=== PATIENT | male | born 1965 | race Caucasian/White ===

== ENCOUNTER 2019-12-14 09:10 | Emergency (ER) | payer SELFPAY ==
[~2019-12-14] VITALS: Ht 167.6 cm; Wt 68.1 kg
--- NOTE | 2019-12-14 09:55 | PHYS DOC ---
Past Medical History Past Medical History: Diverticulitis Past Surgical History: Other Additional Past Surgical Histo: plastic surgery to face Smoking Status: Never Smoker Alcohol Use: Occasionally General Adult EDM: Chief Complaint: KNEE INJURY HPI: HPI: Patient is a 54 year old male who presented to ER today for evaluation of left knee pain. Patient said he was a vacuum yesterday and accidentally twisted his left knee, has pain in his left knee with movement or walking since. Patient denies any history of knee problem in the past. Review of Systems: Review of Systems: Constitutional: Denies fever or chills. [] Eyes: Denies change in visual acuity. [] HENT: Denies nasal congestion or sore throat. [] Respiratory: Denies cough or shortness of breath. [] Cardiovascular: Denies chest pain or edema. [] GI: Denies abdominal pain, nausea, vomiting, bloody stools or diarrhea. [] : Denies dysuria. [] Musculoskeletal: Positive for left knee pain. Integument: Denies rash. [] Neurologic: Denies headache, focal weakness or sensory changes. [] Endocrine: Denies polyuria or polydipsia. [] Lymphatic: Denies swollen glands. [] Psychiatric: Denies depression or anxiety. [] Heart Score: Risk Factors: Risk Factors: DM, Current or recent (<one month) smoker, HTN, HLP, family history of CAD, obesity. Risk Scores: Score 0 - 3: 2.5% MACE over next 6 weeks - Discharge Home Score 4 - 6: 20.3% MACE over next 6 weeks - Admit for Clinical Observation Score 7 - 10: 72.7% MACE over next 6 weeks - Early Invasive Strategies Allergies: Allergies: Allergies Coded Allergies Type Severity Reaction Last Updated Verified No Known Drug Allergies 12/14/19 No Physical Exam: PE: Constitutional: Well developed, well nourished, no acute distress, non-toxic appearance. [] HENT: Normocephalic, atraumatic, bilateral external ears normal, oropharynx moist, no oral exudates, nose normal. [] Eyes: PERRLA, EOMI, conjunctiva normal, no discharge. [] Neck: Normal range of motion, no tenderness, supple, no stridor. [] Cardiovascular:Heart rate regular rhythm, no murmur [] Lungs & Thorax: Bilateral breath sounds clear to auscultation [] Abdomen: Bowel sounds normal, soft, no tenderness, no masses, no pulsatile masses. [] Skin: Warm, dry, no erythema, no rash. [] Back: No tenderness, no CVA tenderness. [] Extremities: Left knee is tender to palpation at the medial collateral ligament area, left knee joint is Stable. There is minimal swelling. Neurologic: Alert and oriented X 3, normal motor function, normal sensory function, no focal deficits noted. [] Psychologic: Affect normal, judgement normal, mood normal. [] Current Patient Data: Vital Signs: Vital Signs Date Time Temp Pulse Resp B/P (MAP) Pulse Ox O2 Delivery O2 Flow Rate FiO2 12/14/19 09:20 98.3 55 18 146/84 (104) 99 Room Air 98.3 EKG: EKG: [] Radiology/Procedures: Radiology/Procedures: [facility] [address] [place] [address] IMAGING REPORT Signed PATIENT: KAJAL OLGUIN ACCOUNT: [id number] : 1965 LOCATION: ER AGE: 54 SEX: M EXAM STATUS: PRE ER ORD. PHYSICIAN: ASHLEIGH JOHN DO REASON: TWISTED LEFT KNEE YESTERDAY, HAVING PAIN WITH WALKING PROCEDURE: KNEE LEFT 3V EXAM: Left knee, 3 views. HISTORY: Twisting injury. COMPARISON: None. FINDINGS: 3 views of the left knee are obtained. There is no fracture, dislocation or subluxation. There is a moderate joint effusion. IMPRESSION: Moderate joint effusion. No acute osseous finding. Electronically signed by: Tootie Bardales MD (12/14/2019 10:18 AM) [id number] DICTATED and SIGNED BY: TOOTIE BARDALES MD DATE: 12/14/19 1018 Course & Med Decision Making: Course & Med Decision Making Pertinent Labs and Imaging studies reviewed. (See chart for details) Patient is a 56-year-old male who was evaluated in the ER due to left knee injury, patient is suspected sprain of knee ligament, patient was placed on a knee immobilizer. Patient will be discharged home, he was given the phone number of the orthopedic doctor here for outpatient follow-up with MRI and further evaluation. Erin Disclaimer: Erin Disclaimer: This electronic medical record was generated, in whole or in part, using a voice recognition dictation system. Departure Departure Impression: Primary Impression: Left knee sprain Disposition: HOME, SELF-CARE Condition: STABLE Referrals: TERENCE LOPEZ II, MD please call this orthopedic surgeon for follow up for further evaluation. Patient Instructions: Knee Sprain Scripts Naproxen Sodium (ANAPROX DS) 550 Mg Tablet 1 TAB PO BID PRN for PAIN for 15 Days, #30 TAB 0 Refills Prov: ASHLEIGH JOHN DO 12/14/19 Justicifation of Admission Dx: Justifications for Admission: Justification of Admission Dx: N/A ASHLEIGH JOHN DO Dec 14, 2019 09:55
--- NOTE | 2019-12-14 10:21 | RAD ---
EXAM: Left knee, 3 views. HISTORY: Twisting injury. COMPARISON: None. FINDINGS: 3 views of the left knee are obtained. There is no fracture, dislocation or subluxation. There is a moderate joint effusion. IMPRESSION: Moderate joint effusion. No acute osseous finding. Electronically signed by: Tootie Rogers MD (12/14/2019 10:18 AM) [id number]
[2019-12-14 10:54] VITALS: BP 149/71
[2019-12-14] MEDS ORDERED: NAPR-682 PO (10:57)
== END 2019-12-14 11:08 | disposition home or self-care (01) ==
LOC: ER 09:10
DX: S83.92XA Sprain of unspecified site of left knee, initial encounter (principal); X50.3XXA Overexertion from repetitive movements, initial encounter; X50.9XXA Other and unspecified overexertion or strenuous movements or postures, initial encounter; Y93.01 Activity, walking, marching and hiking; Y92.89 Other specified places as the place of occurrence of the external cause; Y99.8 Other external cause status
CPT/HCPCS: 29505; 73562; 99283

== ENCOUNTER 2020-04-23 09:41 | Emergency (ER) | payer BC ==
[~2020-04-23] VITALS: Ht 167.6 cm; Wt 65.9 kg
[~2020-04-23 09:41] MED LIST: NAPR-682 PO
[2020-04-23] MEDS ORDERED: ONDANSETRON PF 4 MG/2 ML VIAL. ONE (09:44)
[2020-04-23] MEDS ORDERED: ONDANSETRON PF 4 MG/2 ML VIAL. IVP ONE (09:45)
--- NOTE | 2020-04-23 09:59 | PHYS DOC ---
Past Medical History Past Medical History: Diverticulitis Past Surgical History: Other Additional Past Surgical Histo: plastic surgery to face Smoking Status: Never Smoker Alcohol Use: Occasionally General Adult HPI: HPI: Patient is a 54 year old male currently on Cipro and Flagyl for active diverticulitis who presents today from ENT office to be evaluated for syncope and possible seizure. Patient states he was having a biopsy of the right nose for a polyp. He states he was informed he passed out and could've had a seizure. Patient denies any symptoms right now apart from nausea. Review of Systems: Review of Systems: Constitutional: Denies fever or chills. [] Eyes: Denies change in visual acuity. [] HENT: Denies nasal congestion or sore throat. [] Respiratory: Denies cough or shortness of breath. [] Cardiovascular: Denies chest pain or edema. [] GI: Denies abdominal pain, nausea, vomiting, bloody stools or diarrhea. [] : Denies dysuria. [] Musculoskeletal: Denies back pain or joint pain. [] Integument: Denies rash. [] Neurologic: Reports possible syncope and possible seizure. Denies headache, focal weakness or sensory changes. [] Psychiatric: Denies depression or anxiety. [] Heart Score: Risk Factors: Risk Factors: DM, Current or recent (<one month) smoker, HTN, HLP, family histo ry of CAD, obesity. Risk Scores: Score 0 - 3: 2.5% MACE over next 6 weeks - Discharge Home Score 4 - 6: 20.3% MACE over next 6 weeks - Admit for Clinical Observation Score 7 - 10: 72.7% MACE over next 6 weeks - Early Invasive Strategies Current Medications: Current Medications Medications (Trade) Dose Ordered Sig/[facility] Start Time Stop Time Status Last Admin Dose Admin Ondansetron HCl (Zofran) 4 mg 1X ONCE 04/23/20 09:45 04/23/20 09:48 DC Allergies: Allergies: Allergies Coded Allergies Type Severity Reaction Last Updated Verified No Known Drug Allergies 12/14/19 No Physical Exam: PE: Constitutional: Well developed, well nourished, no acute distress, non-toxic appearance. [] HENT: Normocephalic, atraumatic, bilateral external ears normal, oropharynx moist, no oral exudates, nose normal. [] Eyes: PERRLA, EOMI, conjunctiva normal, no discharge. [] Neck: Normal range of motion, no tenderness, supple, no stridor. [] Cardiovascular:Heart rate regular rhythm, no murmur [] Lungs & Thorax: Bilateral breath sounds clear to auscultation [] Abdomen: Bowel sounds normal, soft, no tenderness, no masses, no pulsatile masses. [] Skin: Warm, dry, no erythema, no rash. [] Back: No tenderness, no CVA tenderness. [] Extremities: No tenderness, no cyanosis, no clubbing, ROM intact, no edema. [] Neurologic: Alert and oriented X 3, normal motor function, normal sensory function, no focal deficits noted. Cranial nerves II-XII intact. Psychologic: Affect normal, judgement normal, mood normal. [] EKG: EKG: [] Radiology/Procedures: Radiology/Procedures: []PROCEDURE: CT HEAD WO CONTRAST EXAM: Head CT without contrast. HISTORY: Syncope. TECHNIQUE: Computed tomographic images of the head were obtained without contrast. *One or more of the following individualized dose reduction techniques were utilized for this examination: 1. Automated exposure control. 2. Adjustment of the mA and/or kV according to patient size. 3. Use of iterative reconstruction technique. COMPARISON: None. FINDINGS: There is no acute or subacute extra-axial or intraparenchymal hemorrhage. There is no mass effect or midline shift. There is no hydrocephalus. The loyd-white matter differentiation pattern is intact. There is moderate ethmoid sinus mucosal thickening. There is a tiny left sphenoid sinus mucous retention cyst. The orbits and mastoid air cells are unremarkable. There is no calvarial lesion. IMPRESSION: No acute intracranial findings. Electronically signed by: Tootie Bardales MD (04/23/2020 10:36 AM) [id number] DICTATED and SIGNED BY: TOOTIE BARDALES MD DATE: 04/23/20 [id number] PROCEDURE: PORTABLE CHEST 1V EXAM: CHEST 1 VIEW History: Syncope COMPARISON: None available. TECHNIQUE: Single portable radiograph of the chest FINDINGS: The cardiac silhouette is unremarkable. The lungs are clear bilaterally. The costophrenic sulci are clear and well demarcated. IMPRESSION: No radiographic evidence of an acute cardiopulmonary process. Electronically signed by: Ravi Parker MD (04/23/2020 10:20 AM) [id number] DICTATED and SIGNED BY: RAVI PARKER MD DATE: 04/23/20 [id number] Course & Med Decision Making: Course & Med Decision Making Pertinent Labs and Imaging studies reviewed. (See chart for details) This is a 54-year-old male patient presented to the ED today to be evaluated for possible seizure/syncope episode. Patient was having a biopsy of the right nose for polyp when it was reported he could've passed out and had seizure-like activity. CT of the head and chest x-rays interpreted by radiologist are negative for any acute findings. CBC with a WBC of 19.4, patient is currently on Cipro and Flagyl for diverticulitis. CMP with glucose of 208, anion gap is normal. Lactic is 2.5. Patient denies any history of diabetes type 2, recommended he follows up with the PCP for this. He is awake oriented x4 in no acute distress. He states he feels better. Discharge to home Dragon Disclaimer: [place] Disclaimer: This electronic medical record was generated, in whole or in part, using a voice recognition dictation system. Departure Departure Impression: Primary Impression: Hyperglycemia Additional Impression: Syncope Qualified Codes: R55 - Syncope and collapse Disposition: 01 DC HOME SELF CARE/HOMELESS Condition: STABLE Referrals: NO PCP (PCP) follow up in 1-2 weeks with your primary care doctor Patient Instructions: Hyperglycemia, Syncope, [id number] Additional Instructions: You were evaluated in the emergency room, your work-up in the emergency room was negative for any acute findings, you were noted for elevated glucose of 208. Please have your primary care doctor follow-up for this RICA PLUMMER APRN Apr 23, 2020 09:59
[2020-04-23 10:11] LABS: BASO # 0.1 x10^3/uL (0.0-0.2); BASO % 1 % (0-3); EOS # 0.5 x10^3/uL (0.0-0.7); EOS % 3 % (0-3); HEMATOCRIT 46.9 % (39.0-53.0); HEMOGLOBIN 16.1 g/dL (13.0-17.5); LYMPH # 4.2 x10^3/uL (1.0-4.8); LYMPH % 22 % (24-48); MEAN CORPUSCULAR HEMOGLOBIN 31 pg (25-35); MEAN CORPUSCULAR HGB CONC 34 g/dL (31-37); MEAN CORPUSCULAR VOLUME 90 fL (79-100); MONO % 5 % (0-9); NEUT # 13.6 x10^3/uL (1.8-7.7); NEUT % 70 % (31-73); PLATELET COUNT 198 x10^3/uL (140-400); RED BLOOD COUNT 5.23 x10^6/uL (4.30-5.70); RED CELL DISTRIBUTION WIDTH 13.6 % (11.5-14.5); WHITE BLOOD COUNT 19.4 x10^3/uL (4.0-11.0)
[2020-04-23 10:21] LABS: CALCIUM 9.6 mg/dL (8.5-10.1); CREATININE 1.2 mg/dL (0.7-1.3); GFR 63.6; POTASSIUM 3.6 mmol/L (3.5-5.1)
--- NOTE | 2020-04-23 10:23 | RAD ---
EXAM: CHEST 1 VIEW History: Syncope COMPARISON: None available. TECHNIQUE: Single portable radiograph of the chest FINDINGS: The cardiac silhouette is unremarkable. The lungs are clear bilaterally. The costophrenic sulci are clear and well demarcated. IMPRESSION: No radiographic evidence of an acute cardiopulmonary process. Electronically signed by: Ravi Parker MD (04/23/2020 10:20 AM) [id number]
[2020-04-23 10:32] VITALS: BP 137/77
[2020-04-23 10:36] LABS: ALBUMIN/GLOBULIN RATIO 1.1 (1.0-1.7); MAGNESIUM 2.2 mg/dL (1.8-2.4); TOTAL BILIRUBIN 0.4 mg/dL (0.2-1.0); TOTAL PROTEIN 7.6 g/dL (6.4-8.2)
--- NOTE | 2020-04-23 10:38 | RAD ---
EXAM: Head CT without contrast. HISTORY: Syncope. TECHNIQUE: Computed tomographic images of the head were obtained without contrast. *One or more of the following individualized dose reduction techniques were utilized for this examina tion: 1. Automated exposure control. 2. Adjustment of the mA and/or kV according to patient size. 3. Use of iterative reconstruction technique. COMPARISON: None. FINDINGS: There is no acute or subacute extra-axial or intraparenchymal hemorrhage. There is no mass effect or midline shift. There is no hydrocephalus. The loyd-white matter differentiation pattern is intact. There is moderate ethmoid sinus mucosal thic kening. There is a tiny left sphenoid sinus mucous retention cyst. The orbits and mastoid air cells a re unremarkable. There is no calvarial lesion. IMPRESSION: No acute intracranial findings. Electronically signed by: Tootie Rogers MD (04/23/2020 10:36 AM) [id number]
[2020-04-23 10:55] LABS: % BANDS 1 % (0-9); % BASOS 1 % (0-3); % EOS 2 % (0-5); % LYMPHS 11 % (24-48); % MONOS 2 % (0-10); % SEGS 83 % (35-66); PLT ESTIMATE ADEQUATE (ADEQUATE)
== END 2020-04-23 11:20 | disposition home or self-care (01) ==
LOC: ER 09:41
DX: R55 Syncope and collapse (principal); R73.9 Hyperglycemia, unspecified
CPT/HCPCS: 36415; 70450; 71045; 80053; 82553; 83605; 83735; 83880; 84443; 84484; 85007; 85025; 93005; 96374; 99285; J2405